=== PATIENT | male | born 1975 | race Caucasian/White ===

== ENCOUNTER 2022-08-15 08:47 | Outpatient (CLI) | payer OTHER, SELFPAY ==
[2022-08-15 14:41] LABS: Kit Draw Collected
== END 2022-08-15 08:48 | disposition home or self-care (01) ==
LOC: ANHGOSHLAB 08:52
PROVIDERS: PCP Internal Medicine; Visit Provider Clinical Nurse Specialist
DX: R42 Dizziness and giddiness (principal); F41.1 Generalized anxiety disorder; Z13.220 Encounter for screening for lipoid disorders; Z13.228 Encounter for screening for other metabolic disorders
CPT/HCPCS: 36415

== ENCOUNTER 2022-09-17 08:30 | Outpatient (CLI) | payer OTHER, SELFPAY ==
--- NOTE | 2022-09-17 08:49 | EST_ITS ---
Patient Info Name: Donny Boswer Age: 47 years : 1975 Gender: Male Ht: 72 in Wt: 218 lbs BSA: 2.26 m2 HR: 57 bpm BP: 115 / 78 mmHg Heart Rhythm: Sinus Rhythm Technical Quality: Good Exam Date: 09/17/2022 9:15 AM Exam Location: [facility] Pulmonary Patient Status: Outpatient Admit Date: 09/17/2022 Staff Ordering Physician: Marcella Cruz-Hermann Women[employer] Lecturer: Deepthi Lopez RDCS Attending Provider: JONATHAN CHRISTENSEN DO Referring Physician: Anthony SIERRA; Exam Type: CA stress echo Study Info Indications R42 - Dizziness and giddiness Treadmill exercise stress echocardiogram is performed. Summary 1. 1. Negative Tim exercise stress test for ischemic ST changes by ECG criteria. 2. 2. Good functional capacity, achieving 12 METs of workload. 3. 3. Appropriate HR response to exercise. 4. 4. Appropriate HR recovery at 1 minute post exercise. 5. 5. Negative stress echocardiogram for ischemia by wall motion analysis. 6. 6. Patient informed of the above results. Stress Echo Findings Left Ventricle Appropriate increase in LV endocardial thickening with systole. Appropriate augmentation of contractility with systole. No wall motion abnormality. Left Ventricle Normal LV systolic function, no wall motion abnormality. Protocol: Tim Stress ECG Details Stage: REST Duration (min): 0 min : 56 sec Speed (mph): 0.0 Grade (%): 0 HR (bpm): 61 SBP (mmHg): 115 DBP (mmHg): 78 METS: --- Stage: REST Duration (min): 24 min : 13 sec Speed (mph): 0.0 Grade (%): 0 HR (bpm): 65 SBP (mmHg): 115 DBP (mmHg): 78 METS: --- Stage: STAGE 1 Duration (min): 1 min : 0 sec Speed (mph): 1.7 Grade (%): 10 HR (bpm): 83 SBP (mmHg): 115 DBP (mmHg): 78 METS: --- Stage: STAGE 1 Duration (min): 2 min : 0 sec Speed (mph): 1.7 Grade (%): 10 HR (bpm): 85 SBP (mmHg): 115 DBP (mmHg): 78 METS: --- Stage: STAGE 1 Duration (min): 3 min : 0 sec Speed (mph): 1.7 Grade (%): 10 HR (bpm): 91 SBP (mmHg): 165 DBP (mmHg): 74 METS: --- Stage: STAGE 2 Duration (min): 1 min : 0 sec Speed (mph): 2.5 Grade (%): 12 HR (bpm): 94 SBP (mmHg): 165 DBP (mmHg): 74 METS: --- Stage: STAGE 2 Duration (min): 2 min : 0 sec Speed (mph): 2.5 Grade (%): 12 HR (bpm): 102 SBP (mmHg): 145 DBP (mmHg): 76 METS: --- Stage: STAGE 2 Duration (min): 3 min : 0 sec Speed (mph): 2.5 Grade (%): 12 HR (bpm): 107 SBP (mmHg): 145 DBP (mmHg): 76 METS: --- Stage: STAGE 3 Duration (min): 1 min : 0 sec Speed (mph): 3.4 Grade (%): 14 HR (bpm): 121 SBP (mmHg): 141 DBP (mmHg): 70 METS: --- Stage: STAGE 3 Duration (min): 2 min : 0 sec Speed (mph): 3.4 Grade (%): 14 HR (bpm): 128 SBP (mmHg): 141 DBP (mmHg): 70 METS: --- Stage: STAGE 3 Duration (min): 3 min : 0 sec Speed (mph): 3.4 Gra
== END 2022-09-17 08:31 | disposition home or self-care (01) ==
LOC: ANHCARD 08:32
PROVIDERS: PCP Internal Medicine; Visit Provider Clinical Nurse Specialist
DX: R06.02 Shortness of breath (principal); R42 Dizziness and giddiness
CPT/HCPCS: 93351

== ENCOUNTER → 2023-11-11 13:50 | Outpatient (CLI) | payer BC, SELFPAY ==
--- NOTE | ~2023-11-11 | XR_ITS ---
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 RESULT: Lines, tubes, and devices: None. Lungs and pleura: Clear. Cardiomediastinal silhouette: Stable. Other: No acute osseous or upper abdominal finding. IMPRESSION: No acute cardiopulmonary process. Reviewed, dictated and finalized at location K. [place] [employer] EXECUTIVE
== END ==
PROVIDERS: PCP Clinical Nurse Specialist; Visit Provider Clinical Nurse Specialist
DX: R06.02 Shortness of breath (principal); Z87.891 Personal history of nicotine dependence
CPT/HCPCS: 71046

== ENCOUNTER 2024-01-14 08:30 | Outpatient (CLI) | payer BC, SELFPAY ==
[2024-01-21 19:23] VITALS: BMI 31.5
--- NOTE | 2024-01-21 19:23 | WPDHOMESLEEP ---
Sleep Study - Home Unattended Date of Study: 01/14/24 Ordering Provider: RUSSELL Steele-Hermann Interpreting Provider: Caridad Sinha, DO Home Sleep Study Type: Watch PAT Height: 1.8 m Weight: 102.512 kg Body Mass Index: 31.5 Neck Circumference (inches): 16.5 [place]: 6 Reason for Sleep Study Decreased energy Sleep History The patient is a 48-year-old male that had a sleep study ordered by his primary care for evaluation of decreased energy. He denies awakening from sleep from short of breath. He denies awakening at night with heartburn, belching or cough. He denies snoring. He occasionally has trouble sleeping when he has a cold. He denies waking up gasping for air throughout the night. He occasionally has breathing problems at night observed by himself or others. He rarely sweats excessively at night. He denies having heart palpitations or irregular heartbeats during the night. He denies falling asleep during the day and while driving. He denies sleep paralysis, cataplexy and hypnagogic / hypnopompic hallucinations. He denies having trouble at school or work due to sleepiness. Denies feeling afraid of going to sleep. He denies having nightmares. He occasionally remembers his dreams. He rarely has thoughts racing through his mind. He occasionally feels sad or depressed. He rarely has anxiety. He denies having muscular tension. He occasionally notices parts of his body jerk. He occasionally kicks during the night. He denies having crawling and aching feelings in his legs and denies having leg pain during the night. He denies grinding his teeth during sleep and denies awakening with morning jaw pain. He is occasionally bothered by pain during the day but never awakened by pain during the night. He constantly wakes up feeling stiff in the morning. He frequently wakes up with sore or achy muscles. He occasionally wakes up with pain in the neck, spine and other joints. He goes to bed at 11:00 p.m. on weekdays and between midnight to 2:00 a.m. on the weekends. He is able to fall asleep within a few minutes. He wakes up once throughout the night to let the dog out and is able fall back asleep within 5 minutes. He wakes up at 7:00 a.m. on weekdays and 8:00 a.m. on the weekends. He typically gets 7 hours of sleep per night. He will stay in bed for 10 minutes after waking up in the morning. He currently lives with his to children. He denies consuming any caffeinated beverages within 2 hours of bedtime. He will engage in physical exercise before bedtime. He will watch television before falling asleep. He denies taking naps in afternoon or the evening. He consumes 16 oz of coffee per day. He quit smoking cigarettes 5 years ago. He will consume 1-2 alcoholic beverages per day. He denies recreational drug use. [facility] Past Medical History Medical History Allergies Asthma Broken foot Depression Family History Family History Father Heart disease Son Depression Grandparent Heart disease Social History Social History Smoking status: Former smoker Tobacco type: cigarettes Smoking end date: 10/06/18 Alcohol intake: current Substance use: never Do You Feel Safe in your Home?: Yes Lack of Transportation: No Lack of Food: Never True Current Housing: I Have Housing Concerned About Future Housing: No Difficulty Paying Gas/Electric Bills: No Difficulty Paying for Meds: No Currently Unemployed: No Education: Bachelor's Degree Difficulty w/ Childcare or Family Care: No Medications Home Medications Medication Instructions Recorded Confirmed Type azelastine 137 mcg (0.1 %) nasal 137 mcg (0.137 mL) intranasal Q12H 09/26/22 01/13/24 Rx spray aerosol #30 mL fluticasone propionate 50 1 spray intranasal Q12H
== END 2024-01-15 07:30 | disposition home or self-care (01) ==
LOC: ANHCSM 08:31
PROVIDERS: PCP Internal Medicine; Visit Provider Clinical Nurse Specialist
DX: G47.10 Hypersomnia, unspecified (principal)
CPT/HCPCS: 95800